=== PATIENT | male | born 1975 ===

== ENCOUNTER 2020-12-09 12:01 | Outpatient (REF) | payer MEDICAID, SELFPAY ==
[2020-12-09 12:34] LABS: COVID-19 Test Negative (Negative)
== END 2020-12-09 12:02 | disposition home or self-care (01) ==
LOC: HO.LAB 12:01
PROVIDERS: Visit Provider Internal Medicine
DX: Z20.822 Contact with and (suspected) exposure to COVID-19 (principal)
CPT/HCPCS: 36415; 87635; C9803

== ENCOUNTER 2023-05-19 15:23 | Outpatient (REF) | payer MEDICAID, SELFPAY ==
[2023-05-19 18:16] LABS: Alanine Aminotransferase 53 U/L (0-40); Albumin Level 4.5 g/dL (3.5-5.0); Alkaline Phosphatase 90 U/L (39-117); Anion Gap 13 (12-20); Aspartate Amino Transferase 32 U/L (5-37); Bilirubin Total 0.6 mg/dL (0.0-1.0); Blood Urea Nitrogen 13 mg/dL (9-16); Calcium 9.7 mg/dL (8.4-10.2); Carbon Dioxide 29 mmol/L (22-29); Chloride 105 mmol/L (96-108); Cholesterol 210 mg/dL (<200); Estimated Glomerular Filt Rate > 60; Glucose Random 94 mg/dL (60-115); HDL Cholesterol 38 mg/dL (>40); LDL Cholesterol Calculated 128 mg/dL (<100); Potassium 4.4 mmol/L (3.3-5.1); Sodium 143 mmol/L (135-145); Triglycerides 222 mg/dL (<150)
[2023-05-19 18:24] LABS: TSH reflex Free T4 0.56 uIU/mL (0.32-4.0)
== END 2023-05-19 15:24 | disposition home or self-care (01) ==
LOC: HO.HHCL 15:23
PROVIDERS: Visit Provider General Practice
DX: R03.0 Elevated blood-pressure reading, without diagnosis of hypertension (principal)
CPT/HCPCS: 36415; 80053; 80061; 84443

== ENCOUNTER 2024-01-31 11:43 | Emergency (ER) | payer MEDICAID, SELFPAY ==
--- NOTE | 2024-01-31 11:56 | ED.GENADULT ---
HPI - General Adult General Stated complaint: High Blood Pressure Related Data Allergies Allergy/AdvReac Type Severity Reaction Status Date / Time No Known Allergies Allergy Unverified 12/05/19 16:54 Course Course Course Narrative: RME: Discharge Plan Discharge Print Language: Greenlandic
[2024-01-31 12:21] VITALS: BP 136/89; PULSE 73; RESP 18; TEMP 36.6; O2SAT 98; BMI 33.1
--- NOTE | 2024-01-31 12:21 | ECG_ITS ---
Test Reason : chest pain Blood Pressure : / mmHG Vent. Rate : 067 BPM Atrial Rate : 067 BPM P-R Int : 158 ms QRS Dur : 108 ms QT Int : 392 ms P-R-T Axes : 023 017 006 degrees QTc Int : 414 ms Normal sinus rhythm Normal ECG When compared with ECG of 06-APR-2010 04:52, No significant change was found Referred By: Sanjay Strickland Electronically Signed By:Avery Nunez
--- NOTE | 2024-01-31 12:22 | ED.GENADULT ---
HPI - General Adult General Chief complaint: General Medical Stated complaint: High Blood Pressure Time Seen by Provider: 01/31/24 16:03 Source: patient, RN notes reviewed and old records reviewed Mode of arrival: ambulatory Limitations: no limitations History of Present Illness ED Provider: Moi YODER narrative: 48-year-old male presents for evaluation of headache and dizziness. Patient reports that he checks his blood pressure when he felt this way about an hour prior to arrival. He reports his blood pressure was ?195/95. ? Patient reports a history of high blood pressure for which she is prescribed lisinopril 2.5 mg daily she had He reports that he has this medication at home but has not taken it in about 5 months He did not feel that he needed it Currently he reports he feels much better. He does have a mild headache that is a 2/10. He denies any dizziness, chest pain, shortness of breath, palpitations. Patient did have some chest pain yesterday morning but no chest pain today Has no other complaints or concerns at this time Related Data Allergies Allergy/AdvReac Type Severity Reaction Status Date / Time No Known Allergies Allergy Verified 01/31/24 12:22 Review of Systems Constitutional: Constitutional: Denies body ache(s), Denies chills, Denies fever(s), Denies frequent falls and Reports headache(s) Eyes: Eyes: Denies blurry vision ENT: Denies vertigo, Denies dizziness and Reports headache(s) Cardiovascular: Cardiovascular: Denies chest pain and Denies dyspnea Respiratory: Respiratory: Denies cough and Denies dyspnea Gastrointestinal: Gastrointestinal: Denies abdominal pain, Denies nausea and Denies vomiting Musculoskeletal: Musculoskeletal: Denies back pain Integumentary/Breasts: Skin/Breast: Denies rash Neurologic: Denies vertigo, Denies dizziness, Denies frequent falls and Reports headache(s) Psychiatric: Psychiatric: Denies anxiety [facility] Social History Social History Alcohol intake: current Alcohol intake frequency: holidays/special occasions only Smoked in Last 30 Days: No Use of substances other than those prescribed or required for medical reasons: No Advance Directives: No Advance Directives Information Provided: Yes Do you have a plan to hurt others: No Plan Physical Exam ED Vital Signs: Vital Signs - 24 hr 01/31/24 12:21 01/31/24 15:53 01/31/24 16:53 Temperature 98 F 98 F Pulse Rate 73 63 63 Respiratory Rate 18 18 18 Blood Pressure 136/89 139/87 139/87 Pulse Oximetry 98 98 98 Oxygen Delivery Method Room Air Room Air Room Air BMI result Body Mass Index 33.1 Const General: healthy appearing, comfortable, no acute distress, alert and awake Nutritional Appearance: well nourished Orientation/consciousness: patient oriented x3 HENMT Head: Yes normocephalic and Yes atraumatic Eyes Eyelids: Yes eyelids normal Conjunctivae: conjunctivae normal Sclerae: sclerae normal Corneas: corneas normal Pupils: Equal, round and reactive pupils present EOM: EOMs intact bilaterally Neck Neck: Yes full ROM Resp Effort & Inspection: normal respiratory effort, able to speak in complete sentences and not labored Cardio Rate: regular rate Rhythm: regular rhythm GI Inspection: No distended Palpation (GI): Soft to palpation, not firm, nontender, no guarding and not rigid Skin General skin exam: elasticity normal Neuro General: patient oriented x3 Cranial nerves: Yes CN's II-XII intact bilaterally, Yes Equal, round and reactive pupils present and Yes Bilaterally intact EOM present Cognition (Neuro): normal cognition Extrem Other: Moving all extremities well without any obvious deformities Course Course Course Narrative: RME: 48-year-old male presents to the ED headache described as posterior headache that began today with elevated blood pressure. Patient states he went to [facility] in his blood pressure was 193/95. Patient states history of high blood pressure and has been noncompliant with his medication. Patient lacks took high blood pressure medication 5 months ago and does not remember the name. Patient states also mild chest pain. Patient states presently headache has improved. Negative for any neuro deficits. NIH score is 0. We will do labs EKG. Medical Decision Making Medical Decision Making MDM Narrative: 48-year-old male history of hypertension presents for evaluation of high blood pressure with associated headache and dizziness. Patient said his dizziness seemed to related to elevated blood pressure because he went across the street to [facility] to have his blood pressure checked when he was feeling dizzy with a headache. Currently he has a mild headache but no longer any dizziness. He has no blurry vision, weakness difficulty with speech. The patient has not had any chest pain since yesterday, his troponin is negative. His EKG is normal and he rules out for ACS. He has an NIH stroke score of 0, his blood pressure has improved without any intervention. Suspicion for infectious processes the patient has no neck pain, fever, chills or respiratory symptoms. Plan for discharge to follow up with his PCP Differential Diagnosis Differential Diagnoses: The differential diagnosis associated with the presentation includes Acute headache High blood pressure Hypertension Dizziness ACS less likely Cardiomyopathy Lab Data MDM Lab Attestation statement: I reviewed the patient's lab results. No leukocytosis or anemia. Normal platelet count. No electrolyte abnormalities. 01/31/24 12:47 01/31/24 12:47 Labs: Lab Results 01/31/24 Range/Units 12:47 WBC 6.2 (4.8-10.8) X10*3/uL RBC 5.29 (4.60-5.80) X10*6/uL Hgb 16.0 (14.0-18.0) g/dl Hct 44.7 (42.0-52.0) % MCV 84.5 (80.0-98.0) fL MCH 30.2 (27.0-33.0) pg MCHC 35.8 (31.0-36.0) g/dl RDW 13.3 (11.0-16.0) % Plt Count 240 (160-400) X10*3/uL MPV 9.6 (9.4-12.4) fL Immature Gran % (Auto) 0.3 (0.0-0.4) % Neut % (Auto) 53.2 (45-73) % Lymph % (Auto) 30.6 (20-40) % [place] % (Auto) 9.0 (2-11) % Eos % (Auto) 5.5 H (0-4) % Baso % (Auto) 1.4 (0-2) % Lymph # (Auto) 1.9 (1.2-4.9) X10*3/uL [place] # (Auto) 0.6 (0.1-1.2) X10*3/uL Eos # (Auto) 0.3 (0.0-0.4) X10*3/uL Baso # (Auto) 0.1 (0.0-0.2) X10*3/uL Abs Immat Gran (auto) 0.02 (0.00-0.03) X10*3/uL Absolute Neuts (auto) 3.3 (2.0-8.3) x10*3/uL Absolute Nucleated RBC 0.000 (0.0-0.012) X10*3/uL Nucleated RBC % (auto) 0.0 (0.0-0.2) /100WBC PT 11.4 (10.9-12.4) SEC INR 1.0 (0.9-1.1) APTT 34.9 (26.0-36.8) SEC Sodium 141 (135-145) mmol/L Potassium 3.8 (3.3-5.1) mmol/L Chloride 107 (96-108) mmol/L Carbon Dioxide 25 (22-29) mmol/L Anion Gap 13 (12-20) BUN 10 (9-16) mg/dL Creatinine 0.88 (0.5-1.4) mg/dL Estim Creat Clear Calc 108.3 Estimated GFR > 60 Random Glucose 92 (60-115) mg/dL Calcium 9.4 (8.4-10.2) mg/dL Total Bilirubin 0.7 (0.0-1.0) mg/dL AST 22 (5-37) U/L ALT 33 (0-40) U/L Alkaline Phosphatase 78 (39-117) U/L Troponin I High Sens < 2.7 (<3.5-35.0) ng/L Total Protein 7.2 (6.5-8.0) g/dL Albumin 4.1 (3.5-5.0) g/dL Independent Interpretation I performed an independent interpretation of an: EKG Interpretation: Sinus rhythm with a rate of [address] segment elevations or depressions. Discharge Plan Discharge Clinical Impression: Elevated blood pressure reading Patient Disposition: Home, Self-Care Instructions: Chronic Hypertension (ED) Additional Instructions: Your workup in the ER today was reassuring. This includes your blood work, your EKG I recommend that start your lisinopril 2.5 mg daily Call your primary doctor to schedule follow-up Return for new or worsening symptoms Interventions: ED Discharge Assessment Last Done: 01/31/24 16:53 Discharge Date/Time: 01/31/24 16:54 Print Language: Thai
[2024-01-31 12:55] LABS: MANUAL DIFF FLAG NO
[2024-01-31 12:58] LABS: Basophils Absolute Auto 0.1 X10*3/uL (0.0-0.2); Basophils Percent Auto 1.4 % (0-2); Eosinophils Absolute Auto 0.3 X10*3/uL (0.0-0.4); Eosinophils Percent Auto 5.5 % (0-4); Hematocrit 44.7 % (42.0-52.0); Imm Gran Abs Auto 0.02 X10*3/uL (0.00-0.03); Imm Gran Pct Auto 0.3 % (0.0-0.4); Lymphocytes Absolute Auto 1.9 X10*3/uL (1.2-4.9); Lymphocytes Percent Auto 30.6 % (20-40); Mean Corpuscular HGB Conc 35.8 g/dl (31.0-36.0); Mean Corpuscular Hemoglobin 30.2 pg (27.0-33.0); Mean Corpuscular Volume 84.5 fL (80.0-98.0); Mean Platelet Volume 9.6 fL (9.4-12.4); Monocytes Absolute Auto 0.6 X10*3/uL (0.1-1.2); Neutrophils Absolute Auto 3.3 x10*3/uL (2.0-8.3); Neutrophils Percent Auto 53.2 % (45-73); Platelet Count 240 X10*3/uL (160-400); Red Blood Count 5.29 X10*6/uL (4.60-5.80); Red Cell Distribution Width 13.3 % (11.0-16.0); White Blood Count 6.2 X10*3/uL (4.8-10.8)
[2024-01-31 13:03] LABS: Prothrombin Time 11.4 SEC (10.9-12.4)
[2024-01-31 13:05] LABS: Partial Thromboplastin Time 34.9 SEC (26.0-36.8)
[2024-01-31 13:10] LABS: Alanine Aminotransferase 33 U/L (0-40); Albumin Level 4.1 g/dL (3.5-5.0); Alkaline Phosphatase 78 U/L (39-117); Anion Gap 13 (12-20); Aspartate Amino Transferase 22 U/L (5-37); Bilirubin Total 0.7 mg/dL (0.0-1.0); Blood Urea Nitrogen 10 mg/dL (9-16); Calcium 9.4 mg/dL (8.4-10.2); Carbon Dioxide 25 mmol/L (22-29); Chloride 107 mmol/L (96-108); Creatinine Clr Calc Pharmacy 108.3; Estimated Glomerular Filt Rate > 60; Glucose Random 92 mg/dL (60-115); Potassium 3.8 mmol/L (3.3-5.1); Sodium 141 mmol/L (135-145); Total Protein 7.2 g/dL (6.5-8.0)
[2024-01-31 13:18] LABS: Troponin-I High Sensitivity < 2.7 ng/L (<3.5-35.0)
[2024-01-31 15:53] VITALS: BP 139/87; PULSE 63; RESP 18; O2SAT 98
[2024-01-31 16:53] VITALS: BP 139/87; PULSE 63; RESP 18; TEMP 36.6; O2SAT 98
== END 2024-01-31 16:54 | disposition home or self-care (01) ==
PROVIDERS: Physician Assistant; Emergency Provider Student in an Organized Health Care Education/Training Program; PCP Internal Medicine
DX: R51.9 Headache, unspecified (principal); R42 Dizziness and giddiness; R07.89 Other chest pain; I10 Essential (primary) hypertension; Z79.899 Other long term (current) drug therapy
CPT/HCPCS: 36415; 80053; 84484; 85025; 85610; 85730; 93005; 99283; 99284

== ENCOUNTER → 2024-01-31 12:21 | Outpatient (BNV) | payer MEDICAID, SELFPAY | PROVIDERS: Emergency Provider Student in an Organized Health Care Education/Training Program; PCP Internal Medicine; Visit Provider Internal Medicine Cardiovascular Disease | DX: R07.9 Chest pain, unspecified (principal) | CPT/HCPCS: 93010 ==